=== PATIENT | female | born 1950 | race Caucasian/White ===

== ENCOUNTER 2021-02-13 12:05 | Outpatient (CLI) | payer MEDICARE | END 2021-02-13 12:06 | disposition home or self-care (01) | LOC: CSHMAMMO 12:05 | PROVIDERS: ATTEND Internal Medicine | DX: Z12.31 Encounter for screening mammogram for malignant neoplasm of breast (principal); Z91.89 Other specified personal risk factors, not elsewhere classified | CPT/HCPCS: 77063; 77067 ==

== ENCOUNTER 2022-04-25 08:34 | Outpatient (CLI) | payer MEDICARE ==
[2022-04-25] MEDS ORDERED: Iopamidol 300 61% 100 ML VIAL FS ONE (14:29)
== END 2022-04-25 08:35 | disposition home or self-care (01) ==
LOC: CSHCT 08:34
PROVIDERS: ATTEND Physician Assistant Medical
DX: R63.4 Abnormal weight loss (principal); R19.7 Diarrhea, unspecified
CPT/HCPCS: 74177; 82565

== ENCOUNTER 2022-05-17 10:33 | Outpatient (CLI) | payer MEDICARE | END 2022-05-17 10:34 | disposition home or self-care (01) | LOC: CSHMAMMO 10:33 | PROVIDERS: ATTEND Internal Medicine | DX: Z12.31 Encounter for screening mammogram for malignant neoplasm of breast (principal); Z91.89 Other specified personal risk factors, not elsewhere classified | CPT/HCPCS: 77063; 77067 ==

== ENCOUNTER 2023-03-26 09:38 | Outpatient (CLI) | payer MEDICARE | END 2023-03-26 09:39 | disposition home or self-care (01) | LOC: CSHRAD 09:38 | PROVIDERS: ATTEND Internal Medicine | DX: R63.4 Abnormal weight loss (principal); R05.1 Acute cough | CPT/HCPCS: 71046 ==

== ENCOUNTER 2024-12-05 15:39 | Emergency (ER) | payer MEDICARE ==
[2024-12-05] MEDS ORDERED: Lidocaine 1% (PF) 30 ML VIAL ONE (16:33)
== END 2024-12-05 18:24 | disposition home or self-care (01) ==
LOC: CSHERS 15:39
DX: S52.502A Unspecified fracture of the lower end of left radius, initial encounter for closed fracture (principal); M81.0 Age-related osteoporosis without current pathological fracture; W01.0XXA Fall on same level from slipping, tripping and stumbling without subsequent striking against object, initial encounter; Y92.009 Unspecified place in unspecified non-institutional (private) residence as the place of occurrence of the external cause
CPT/HCPCS: 25605; 99283